=== PATIENT | male | born 1950 | race Caucasian/White ===

== ENCOUNTER 2017-06-14 09:06 | Day surgery (SDC) | payer MEDICARE, MEDICAID ==
[2017-06-13 09:30] VITALS: BMI 34.9
[~2017-06-14 09:06] MED LIST: Cyclopentolate 1% Opth Drop 2 ML BOT FS SCH; Fluorouracil 100 MG, Enoxaparin Sodium 25 MG, EPINEPHrine 0.3 MG in Ophthalmic Irrigati... FS SCH; Phenylephrine HCl 2.5% Ophth Soln 5 ML BOT FS SCH
[2017-06-14] MEDS ORDERED: Cyclopentolate 1% Opth Drop 2 ML BOT ONE (09:15)
[2017-06-14] MEDS ORDERED: Phenylephrine HCl 2.5% Ophth Soln 5 ML BOT ONE (09:15)
[2017-06-14] MEDS ORDERED: Ondansetron HCl/PF 4 MG/2 ML Vial ONE ×2 (09:24→11:24)
[2017-06-14] MEDS ORDERED: Diprivan 20 ML ONE (09:24)
[2017-06-14] MEDS ORDERED: Promethazine HCl 25 MG/ML VIAL ONE ×2 (09:24→11:14)
[2017-06-14] MEDS ORDERED: PHENYLEPHRINE-NS 100 MCG/ML 10 ML SYRINGE ONE ×3 (09:24→13:23)
[2017-06-14] MEDS ORDERED: Midazolam HCl 2 mg/2 ml Vial ONE (11:14)
[2017-06-14] MEDS ORDERED: Glycopyrrolate 0.2 MG/ML 5 ML SYRINGE ONE (11:24)
[2017-06-14] MEDS ORDERED: ePHEDrine/0.9% NaCl/PF SYRINGE 50 mg/10 ml ONE (11:24)
[2017-06-14] MEDS ORDERED: Propofol 200 MG/20 ML VIAL ONE (11:24)
--- NOTE | 2017-06-14 12:24 | EKG ---
Test Reason : PREOP Blood Pressure : / mmHG Vent. Rate : 062 BPM Atrial Rate : 062 BPM P-R Int : 232 ms QRS Dur : 100 ms QT Int : 392 ms P-R-T Axes : 053 -16 008 degrees QTc Int : 397 ms Sinus rhythm with 1st degree A-V block Voltage criteria for left ventricular hypertrophy Abnormal ECG When compared with ECG of 12-NOV-2014 12:23, [place] interval has increased Vent. rate has decreased BY [address] Walter BLEDSOE ([id number]) on 06/14/2017 12:24:39 PM Referred By: [email or web address] Confirmed By:DR. Walter BLEDSOE
--- NOTE | 2017-06-14 13:38 | OP ---
DATE OF PROCEDURE: 06/14/2017 PREOPERATIVE DIAGNOSIS: Tractional retinal detachment, left eye. POSTOPERATIVE DIAGNOSIS: Tractional retinal detachment, left eye. PROCEDURE: Pars plana vitrectomy, tractional retinal detachment repair, left eye. SURGEON: David Isaac M.D. ANESTHESIA: General endotracheal anesthesia. COMPLICATIONS: None. PROCEDURE IN DETAIL: The patient was identified in the preoperative holding area. Appropriate info rmed consent for the planned surgical procedure on the left eye had been obtained. The patient was transported to the operative suite where appropriate cardiopulmonary monitoring was established and general endotracheal anesthesia was initiated. Retrobulbar block was placed. Trocars were placed s upratemporally, inferotemporally, and supranasally, and 20-gauge sclerotomy was created supratempora lly. Silicone oil was removed. Extensive membranes of the posterior pole were dissected free from the retina and peeled. The inferior 90-degree retinectomy was created. Complete air fluid exchange was performed with 10 minutes being allowed for fluid to drain posteriorly. Laser was placed along the inferior retinectomy and around the drain retinotomy. Silicone oil was infused into the eye an d sclerotomy was sutured closed with 7-0 Vicryl suture. Retrobulbar Kenalog and subconjunctival Anc ef were placed. Antibiotic ointment was placed, and the eye was patched and shielded. The patient was taken to the postoperative recovery unit in good condition having suffered no immediate perioper ative complications. The patient was instructed to keep patch and shield on, avoid lifting or bendi ng, avoid flat on back positioning, and follow up in the morning with Dr. Isaac.
== END 2017-06-14 16:10 | disposition home or self-care (01) ==
LOC: SDC 09:06
PROVIDERS: ATTEND Ophthalmology Retina Specialist
PROC: 08N53ZZ Release Left Vitreous, Percutaneous Approach (ICD-10-PCS; principal; 2017-06-14)
PROC: 08QF3ZZ Repair Left Retina, Percutaneous Approach (ICD-10-PCS; 2017-06-14)
DX: H33.42 Traction detachment of retina, left eye (principal); Z91.048 Other nonmedicinal substance allergy status; Z95.0 Presence of cardiac pacemaker; Z95.5 Presence of coronary angioplasty implant and graft; Z98.890 Other specified postprocedural states
CPT/HCPCS: 67040; 93005; C1814; 93010; J0171; J1650; J2250; J2405; J2550; J2704; J9190

== ENCOUNTER 2018-09-05 05:58 | Day surgery (SDC) | payer MEDICARE, MEDICAID ==
[2018-09-04 13:18] VITALS: BMI 34.9
[~2018-09-05 05:58] MED LIST changes: -Fluorouracil 100 MG, Enoxaparin Sodium 25 MG, EPINEPHrine 0.3 MG in Ophthalmic Irrigati... FS SCH; +Phenylephrine 2.5% Ophth Soln 5 ML BOT FS SCH; -Phenylephrine HCl 2.5% Ophth Soln 5 ML BOT FS SCH
[2018-09-05] MEDS ORDERED: Fentanyl 100 MCG/2 ML VIAL ONE ×2 (06:12→09:21)
[2018-09-05] MEDS ORDERED: Midazolam HCl 2 mg/2 ml Vial ONE (06:12)
[2018-09-05] MEDS ORDERED: Phenylephrine 2.5% Ophth Soln 5 ML BOT ONE (06:24)
[2018-09-05] MEDS ORDERED: Cyclopentolate 1% Opth Drop 2 ML BOT ONE (06:24)
[2018-09-05] MEDS ORDERED: Phenylephrine HCL 10 MG/ML VIAL ONE (06:52)
[2018-09-05] MEDS ORDERED: PHENYLEPHRINE-NS 100 MCG/ML 10 ML SYRINGE ONE (13:28)
[2018-09-05] MEDS ORDERED: Maxitrol 0.1% Opth Oint 3.5 GM TUBE ONE (13:28)
[2018-09-05] MEDS ORDERED: Bupivacaine 0.75% 10 ML AMP ONE (13:28)
[2018-09-05] MEDS ORDERED: Lidocaine 1% PF 5 ML VIAL ONE (13:28)
[2018-09-05] MEDS ORDERED: Triamcinolone 40 MG/ML VIAL ONE (13:28)
[2018-09-05] MEDS ORDERED: Dexamethasone 20 MG/5 ML VIAL ONE (13:28)
[2018-09-05] MEDS ORDERED: CEFAZOLIN 1 GM VIAL ONE (13:28)
[2018-09-05] MEDS ORDERED: PROPOFOL 200 MG/20 ML VIAL ONE (13:28)
[2018-09-05] MEDS ORDERED: Lidocaine 4% PF 5 ML AMP ONE (13:28)
--- NOTE | 2018-09-05 15:45 | OP ---
DATE OF PROCEDURE: 09/05/2018 PREOPERATIVE DIAGNOSES: 1. Subconjunctival foreign body. 2. Vitreous opacification. 3. Dislocated scleral buckle. POSTOPERATIVE DIAGNOSES: 1. Subconjunctival foreign body. 2. Vitreous opacification. 3. Dislocated scleral buckle. PROCEDURES: Pars plana vitrectomy for subconjunctival foreign body removal and scleral buckle revision, left eye. ANESTHESIA: General endotracheal anesthesia. DESCRIPTION OF PROCEDURE: The patient was identified in the preoperative holding area. Appropriate informed consent for planned surgical procedure on the left eye had been obtained. The patient was transported to the operative suite. Appropriate cardiopulmonary monitoring was established. General endotracheal anesthesia was initiated. Local anesthesia was obtained using retrobulbar block. The left eye was prepped and draped in usual sterile manner for ophthalmic surgery. A lid speculum was placed in the left eye. 25-gauge trocars were placed through the conjunctiva and sclera inferotemporal, superonasal. 20-gauge sclerotomy was created superotemporally. Viscous fluid removal device was inserted into the eye and silicone oil was removed. Vitreous cutter was then inserted into the eye removing residual vitreous and oil. Paracentesis was created into the anterior chamber and anterior chamber silicone oil was removed. A conjunctival peritomy was created by sharp dissection with Jaydon scissors and multiple subconjunctival silicone oil. Scleral buckle inferotemporally was identified and approximately 1 cm of scleral buckle was removed inferotemporally. Conjunctiva was closed with 6-0 plain gut suture retrobulbar Kenalog and subconjunctival Ancef were placed. Atropine antibiotic ointment was placed, and the eye was patched and shielded. The patient was taken to the postoperative recovery unit in good condition, having suffered no immediate perioperative complications. The patient was instructed to keep the patch and shield on, avoid lifting or bending, Followup in the morning with Dr. Isaac. Job ID: [id number]
== END 2018-09-05 10:26 | disposition home or self-care (01) ==
LOC: SDC 05:58
PROVIDERS: ATTEND Ophthalmology Retina Specialist
PROC: 08T43ZZ Resection of Right Vitreous, Percutaneous Approach (ICD-10-PCS; principal; 2018-09-05)
PROC: 08U10JZ Supplement of Left Eye with Synthetic Substitute, Open Approach (ICD-10-PCS; 2018-09-05)
DX: H43.392 Other vitreous opacities, left eye (principal); H59.89 Other postprocedural complications and disorders of eye and adnexa, not elsewhere classified; T15.12XA Foreign body in conjunctival sac, left eye, initial encounter; Z79.82 Long term (current) use of aspirin; Z79.891 Long term (current) use of opiate analgesic; Z79.899 Other long term (current) drug therapy; Z91.09 Other allergy status, other than to drugs and biological substances
CPT/HCPCS: 96374; J0690; J1100; J2001; J2250; J2370; J2704; J3010; J3301; J3490